=== PATIENT | male | born 2005 | race Caucasian/White ===

== ENCOUNTER 2023-03-30 13:16 | Emergency (ER) | payer BC ==
[2023-03-30 13:25] VITALS: BP 130/80; PULSE 72; RESP 16; TEMP 98.1; BMI 22.0
[2023-03-30] MEDS ORDERED: ACETAMINOPHEN 500 MG TABLET (FP) PO ONE (14:10)
[2023-03-30] MEDS ORDERED: ACETAMINOPHEN 500 MG TABLET (FP) ONE (14:19)
[2023-03-30] MEDS ORDERED: SULFAMETHOXAZOLE/TRIMETHOPRIM 800MG/160MG D.S. TABLET PO ONE (14:35)
[2023-03-30] MEDS ORDERED: CLINDAMYCIN HCL 150 MG CAPSULE (FP) PO ONE (14:36)
[2023-03-30] MEDS ORDERED: SULFAMETHOXAZOLE/TRIMETHOPRIM 800MG/160MG D.S. TABLET ONE (14:45)
[2023-03-30] MEDS ORDERED: CLINDAMYCIN HCL 150 MG CAPSULE (FP) ONE (14:45)
== END 2023-03-30 15:07 | disposition home or self-care (01) ==
LOC: FER 13:16
DX: S51.851A Open bite of right forearm, initial encounter (principal); S20.319A Abrasion of unspecified front wall of thorax, initial encounter; W54.0XXA Bitten by dog, initial encounter; Y92.009 Unspecified place in unspecified non-institutional (private) residence as the place of occurrence of the external cause
CPT/HCPCS: 73070-TC-RT-FY; 73090-TC-RT-FY; 99283-25